=== PATIENT | male | born 1965 | race Caucasian/White ===

== ENCOUNTER 2019-04-07 09:48 | Outpatient (CLI) | payer OTHER | END 2019-04-07 09:49 | disposition home or self-care (01) | LOC: CTENTCT 09:48 | PROVIDERS: ATTEND Student in an Organized Health Care Education/Training Program | DX: J33.9 Nasal polyp, unspecified (principal) | CPT/HCPCS: 70486 ==

== ENCOUNTER 2019-05-06 05:58 | Day surgery (SDC) | payer OTHER ==
[2019-05-05 08:51] VITALS: BMI 32.3
[2019-05-06] MEDS ORDERED: AFRIN NASAL MIST 15 ML BOT ONE ×2 (06:13→06:14)
[2019-05-06] MEDS ORDERED: EPINEPHrine 1 MG/ML AMP ONE (06:14)
[2019-05-06] MEDS ORDERED: Lidocaine 1% w/Epinephrine 1:100K 20 ML VIAL ONE (06:14)
[2019-05-06] MEDS ORDERED: Fentanyl 250 MCG/5 ML VIAL ONE (06:32)
[2019-05-06] MEDS ORDERED: Midazolam HCl 2 mg/2 ml Vial ONE (06:32)
[2019-05-06] MEDS ORDERED: Propofol 500 MG/50 ML VIAL ONE (06:56)
[2019-05-06] MEDS ORDERED: Bacitracin Zinc Ointment 30 gm TUBE ONE (08:26)
[2019-05-06] MEDS ORDERED: Fentanyl 100 MCG/2 ML VIAL ONE (08:50)
[2019-05-06] MEDS ORDERED: hydrALAZINE 20 MG/ML VIAL ONE ×2 (08:50→09:08)
[2019-05-06] MEDS ORDERED: Labetalol HCl 100 MG/20 ML VIAL ONE ×2 (09:00→10:02)
[2019-05-06] MEDS ORDERED: Hydrocodone-Acetamin 15 ML UDCUP ONE (09:46)
[2019-05-06] MEDS ORDERED: Dexamethasone 20 MG/5 ML VIAL ONE (10:02)
[2019-05-06] MEDS ORDERED: Lidocaine 1% PF 5 ML VIAL ONE (10:02)
[2019-05-06] MEDS ORDERED: Rocuronium Bromide 10 MG/ML (10ML VIAL) ONE (10:02)
[2019-05-06] MEDS ORDERED: Succinylcholine Chloride 20 MG/ML 10 ml SYRINGE FS ONE (10:02)
[2019-05-06] MEDS ORDERED: Glycopyrrolate 0.2 MG/ML 5 ML SYRINGE ONE (10:02)
[2019-05-06] MEDS ORDERED: Ondansetron ORAL SOLN. 4 MG/5 ML UDCUP ONE (10:02)
[2019-05-06] MEDS ORDERED: PROPOFOL 200 MG/20 ML VIAL ONE (10:02)
--- NOTE | 2019-05-07 10:45 | OP ---
DATE OF PROCEDURE: 05/06/2019 PREOPERATIVE DIAGNOSES: Left and right nasal masses, nasal polyposis, recurrent acute sinusitis, nasal congestion, turbinate hypertrophy, and septal deviation. POSTOPERATIVE DIAGNOSES: Left and right nasal masses, nasal polyposis, recurrent acute sinusitis, nasal congestion, turbinate hypertrophy, and septal deviation. PROCEDURES PERFORMED: Bilateral image guidance endoscopic sinus surgery, bilateral removal of sinus mass, bilateral extensive removal of nasal polyposis, bilateral outfracture of inferior turbinates, and septoplasty. PERMIT: Procedures, benefits, and risks including those of bleeding, infection, injury, anesthesia, allergic reactions, cerebrospinal fluid leak necessitating revision and repair, and alternatives were reviewed with the patient and family, who expressed understanding of the information. The consent form was signed and witnessed, and a paper copy of the consent form is available for review in the paper chart. INDICATIONS FOR PROCEDURE: Mr. Bergman is a 53-year-old male patient with recent presentation to clinic after primary care physician noted a large nasal cavity mass. The patient had endoscopic evaluation as well as CT scan evaluation that showed a large nasal mass bilaterally, which attached to the skull base and could not be differentiated from the olfactory bulb. Given the risk for benign or malignant masses or obstructive masses and given the polyposis and occasional and recurrent sinusitis symptoms, the patient was brought to the operating room for operative treatment. ASSISTANTS: None. FINDINGS: Large nasal mass in the left nasal cavity with very significant septal deviation. Right nasal cavity mass, that it also attached to the skull base with nasal polyposis surrounding bilateral masses and mild thick or purulent mucosa and large inferior turbinates that were obstructed and significantly deviated septum which obscured and blocked removal of the sinus mass. DESCRIPTION OF PROCEDURE: The patient was brought to the operating room and laid supine on the operating room table. General endotracheal anesthesia was administered. The bed was moved inferiorly a small enough to gain access, and the image guidance equipment was brought into place and calibrated. The septum was then infiltrated bilaterally with 1% lidocaine with 1:100,000 epinephrine, as well as the middle turbinate. Six Afrin-soaked cottonoids were placed in the nasal cavities, 3 on each side, and the patient was then prepped and draped in the usual fashion with the image guidance calibrated and used throughout the entire case for localization. The nose was then evaluated endoscopically, and any nasal polyposis that was present was removed after seen with an oscillating microdebrider. The left side was first evaluated, and a large nasal mass that attached superiorly at the base of the skull around the cribriform extending posteriorly all the way towards the face of the sphenoid sinus with the endoscope, and with the endoscopic scissors and with the microdebrider, the superior aspect of the mass was identified and was taken down carefully to carefully remove the mass and preserve the skull base integrity. Some significant bleeding was encountered, so Afrin-soaked pledget was placed periodically to decrease the blood flow from the nasal mass, and the nasal mass was removed from an [id number] fashion taking care to leave intact mucosa on the medial aspect of the middle turbinate and to take care to remove the mass as I progressed towards the posterior aspect of the mass and towards the sphenoid sinus. The mass was completely removed from the nasal cavity and sent for pathologic evaluation. The skull base was then evaluated, and a microdebrider was used to remove any remaining tissue, and Afrin-soaked pledget was placed for hemostasis. The middle turbinate was then identified to be severely lateralized, which would decrease the volume of the ostiomeatal complex, so the middle turbinate was then medialized, and a small amount of NasoPore packing was packed lateral to the middle turbinate in order to keep the middle turbinate in its natural place. The inferior turbinate was then enlarged and obstructive and then was outfractured. Next, the endoscope was used to evaluate the right side, and any obstructing polyps were removed. There was a significant septal deviation, likely from the large left-sided nasal mass, and given that deviation, the mass on the right side could not be accessed, so a septoplasty was undertaken starting on the left side. With the endoscope and the sickle knife, a mucosal incision was made just anterior to the severest part of deviation on the left side after a mucoperichondrial incision was made down to the cartilage. A [place] elevator was used to elevate the mucoperichondrial flap, and a suction [place] was then used to elevate the mucoperichondrial flap all the way posterior to the deviation on the left side. At this point, the sickle knife was used to make a cut on the anterior aspect of the severest aspect of deviation of the nasal septum all the way through the cartilage, but not through the mucoperichondrial flap on the contralateral side. Again, a Jada elevator and a suction [place] was used to elevate the right-sided mucoperichondrial flap taking care to keep the flaps integrity in place. At this point, double-action scissors were used to make superior and inferior cuts at the point of greatest deviation, and then, a Chris was used to remove the cartilage and bony deviation. Once the deviation was satisfactorily removed, a small Afrin-soaked pledget was placed inside the septum cavity to decrease any bleeding, and then the surgery progressed and focused on the right side of the nasal cavity, where now a smaller, but still significant nasal mass was seen and some remaining polyps were seen and then removed. At this point, the superior aspect of the nasal mass was identified and injected with 1% lidocaine with 1:100,000 epinephrine, and again, the mass was removed with a combination of a 0-degree endoscope as well as endoscopic scissors and with microdebrider from [id number] fashion similar to the contralateral left side. Once the mass was removed, a small amount of the mass was remained and was sent for pathologic evaluation. The remaining remnant was removed with the microdebrider and endoscopic scissors, and then the area was then packed with an Afrin pledget in order to secure hemostasis. After hemostasis was achieved and after the pledgets were removed, again the middle turbinate on the right side was lateralized narrowing the ostiomeatal complex in order to repair the volume of the narrowed ostiomeatal complex. A small amount of NasoPore packing was placed lateral to the middle turbinate in order to medialize the middle turbinate to its natural position, and a small amount of NasoPore packing was placed along the skull base, both on the right and left in order to decrease any bleeding. Next, the mucoperichondrial flaps were then approximated with 4-0 chromic suture on a Bertin needle in a mattress fashion back and forth and sutured on the left side to decrease any space between the mucoperichondrial flaps. The anterior incision was not closed in order to make sure no hematoma or blood collection could remain between the mucoperichondrial flaps. At this point, the right-sided inferior turbinate was significantly enlarged and would decrease airflow on the right side and was outfractured in order to allow for greater airflow through the nasal cavity and to decrease further sinus infections and nasal congestion. At this point, the nasal cavity was completely suctioned, and there was no bleeding seen and there were no complications, and the patient was turned back to anesthesia for emergence. There were no drains or implants, and specimens and right lateral nasal masses were sent for pathologic evaluation. Job ID: [id number]
== END 2019-05-06 11:00 | disposition home or self-care (01) ==
LOC: SDC 05:58
PROVIDERS: ATTEND Student in an Organized Health Care Education/Training Program
PROC: 09SM4ZZ Reposition Nasal Septum, Percutaneous Endoscopic Approach (ICD-10-PCS; principal; 2019-05-06)
PROC: 09SL8ZZ Reposition Nasal Turbinate, Via Natural or Artificial Opening Endoscopic (ICD-10-PCS; principal; 2019-05-06)
PROC: 09BK8ZX Excision of Nasal Mucosa and Soft Tissue, Via Natural or Artificial Opening Endoscopic, Diagnostic (ICD-10-PCS; principal; 2019-05-06)
PROC: 8E09XBZ Computer Assisted Procedure of Head and Neck Region (ICD-10-PCS; principal; 2019-05-06)
DX: J33.9 Nasal polyp, unspecified (principal); J32.9 Chronic sinusitis, unspecified; J34.2 Deviated nasal septum; J34.3 Hypertrophy of nasal turbinates; J34.89 Other specified disorders of nose and nasal sinuses; I10 Essential (primary) hypertension; G47.00 Insomnia, unspecified; E11.9 Type 2 diabetes mellitus without complications; Z79.82 Long term (current) use of aspirin; Z79.84 Long term (current) use of oral hypoglycemic drugs; Z79.899 Other long term (current) drug therapy
CPT/HCPCS: 88304; 93005; 93010; J0171; J0360; J1100; J2001; J2250; J2704; J3010; Q0162